=== PATIENT | male | born 2000 | race Caucasian/White ===

== ENCOUNTER 2024-05-07 18:52 | Inpatient (IN) ==
--- NOTE | 2024-05-07 20:02 | Emergency Department Note ---
Impression & Plan Influenza A, AMS (altered mental status), Bilateral pneumonia, Acute hypoxemic respiratory failure, Abdominal pain, Thrombocytopenia, Elevated procalcitonin ED Provider Note HISTORY OF PRESENT ILLNESS: Patient is a 24-year-old male presenting with abdominal pain and vomiting. Patient presents with family who reports that the patient was having fevers, nausea and vomiting and a headache starting 3 days ago. He reports symptoms of gotten progressively worse. He is not complaining of right lower quadrant abdominal pain. Family found the patient this evening to be lethargic and minimally responsive. On EMS arrival, he is found to have a temperature of 103. He was given 4 mg IV Zofran and 1 g of IV Tylenol with a liter of normal saline and route with EMS. Arrival to the ER, the patient is slow to respond but does answer questions. He is currently complaining of pain in his right lower quadrant. Denies any history of abdominal surgeries. ROS: as above PHYSICAL EXAM: Constitutional: Patient appears in no acute distress. Ill appearing HENT: Head: Normocephalic and atraumatic. Eyes: EOMI, PERRL Mouth/Throat: Mucous membranes moist. Neck: Trachea midline. Neck supple. Cardiovascular: RRR, No murmurs, rubs or gallops. Intact distal pulses. Pulmonary/Chest: No respiratory distress. Breath sounds clear and equal bilaterally. On 3 L nasal cannula. Coarse breath sounds in bilateral lower lung dominguez. Abdominal: Abdomen soft, no rebound or guarding. RLQ TTP Musculoskeletal: No edema, tenderness or deformity noted. Skin: Warm and dry. No rash, erythema, pallor or cyanosis Psychiatric: Appropriate mood and affect for situation. Neurological: Alert and keenly responsive. CN II-XII grossly intact, moving all extremities equally and fully. MDM: - Vitals signs showed hypertension, fever and hypoxia. Patient placed on supplemental oxygen - History obtained via patient and patient's family. History as above. - Chronic conditions affecting care: None - Differential diagnoses include, but are not limited to: Pneumonia; viral syndrome; UTI; appendicitis; small bowel obstruction; pulmonary embolism - Order placed for continuous cardiac monitoring. At this time, monitor showed rate of 63 bpm with normal sinus rhythm, per my interpretation. - External medical records reviewed. - EKG interpreted by myself showed normal sinus rhythm. Rate 71 bpm. QT 380. No acute ischemic changes. - Laboratory workup interpreted by myself showed leukopenia (WBC 2.88); thrombocytopenia (plt 113); normal PT; hyponatremia (Na 132); normal lactate; normal troponin; elevated procalcitonin (2.34) - Blood cultures obtained - Patient given IV Zosyn for empiric antibiotic coverage given his right lower quadrant abdominal pain concern for potential appendicitis. - UA negative for infection. Noted to have trace blood and ketones. - Viral respiratory panel positive for influenza A - CXR shows what appears to be a left-sided pneumonia, per my interpretation. - CT abdomen/pelvis with IV contrast noted to have bilateral lower lobe pneumonia with the left greater than the right. Appendix not visualized but no secondary findings of appendicitis. - Patient given 1L NS with EMS prehospital and an additional 1.5L NS in ER. Patient sepsis volume fluid calculation based on ideal body weight is 2427.00 mL - Discussion was had with nurse outreach case manager about patient's case and need for admission - Hospitalist, Dr. Tomlin, consulted for admission. She requested that Rocephin and azithromycin be ordered for further antibiotic management. These medications were ordered. ,- Patient admitted to [facility] for further evaluation and management. I have personally spent 48 minutes of critical care time in the direct management of this patient. This includes bedside care, interpretation of diagnostic studies, and testing, discussion with consultants, patient, and family members, and other required patient management activities. This 48 minutes is in excess of all separately billable procedures. ASSESSMENT AND PLAN: Diagnosis: Influenza A; altered mental status; bilateral pneumonia; acute hypoxemic respiratory failure; abdominal pain; thrombocytopenia; elevated procalcitonin Plan: admit Past Med/Surg History Problem List (Updated 05/07/24 @ 22:48 by Danelle Hagen MD) Elevated procalcitonin (Acute) Thrombocytopenia (Acute) Abdominal pain (Acute) Acute hypoxemic respiratory failure (Acute) Bilateral pneumonia (Acute) AMS (altered mental status) (Acute) Influenza A (Acute) Social History Smoking Status: Never smoker Feels Safe at Home: Yes Allergies Allergies Allergy/AdvReac Type Severity Reaction Status Date / Time No Known Allergies Allergy Verified 05/07/24 21:34 Home Meds Home Medications Medication Instructions Recorded Confirmed No Known Home Medications 05/07/24 05/07/24 Results & Data (ED) Vital Signs Vital Signs - 24 hr 05/07/24 18:59 05/07/24 19:02 05/07/24 19:57 Temperature 37.7 C H Temperature Source Oral Pulse Rate 78 69 Pulse Rate [Apical] Pulse Rhythm [Apical] Pulse Strength [Apical] Respiratory Rate 18 Respiratory Effort / Characteristics Non-Labored Respiratory Depth Normal Respiratory Pattern Blood Pressure 147/77 H Blood Pressure [Right Arm] Blood Pressure Mean 100 Blood Pressure Mean [Right Arm] Pulse Oximetry 88 L 88 L Oxygen Delivery Method Room Air Room Air Oxygen Flow Rate Sepsis Recent Fever Within 48 Hours Yes Sepsis New/Unexplained Change in Mental Status No Sepsis Action Taken by Nursing No Action Required Oxygen Flow Rate - Titration 2 Pulse Oximetry Post Tiitration 93 05/07/24 19:57 05/07/24 20:00 05/07/24 21:00 Temperature Temperature Source Pulse Rate Pulse Rate [Apical] 68 61 Pulse Rhythm [Apical] Regular Pulse Strength [Apical] Normal Respiratory Rate 18 16 Respiratory Effort / Characteristics Non-Labored Non-Labored Respiratory Depth Normal Normal Respiratory Pattern Regular Blood Pressure Blood Pressure [Right Arm] 126/72 134/71 Blood Pressure Mean Blood Pressure Mean [Right Arm] 90 92 Pulse Oximetry 93 92 Oxygen Delivery Method Nasal Cannula Nasal Cannula Nasal Cannula Oxygen Flow Rate 2 2 Sepsis Recent Fever Within 48 Hours Sepsis New/Unexplained Change in Mental Status Sepsis Action Taken by Nursing Oxygen Flow Rate - Titration Pulse Oximetry Post Tiitration Laboratory Data 05/07/24 19:50 05/07/24 19:50 Lab Results 05/07/24 05/07/24 Range/Units 19:50 19:55 WBC 2.88 L (4.8-10.8) K/ul RBC 5.05 (4.70-6.10) M/uL Hgb 15.1 (14.0-18.0) g/dl Hct 42.1 (42.0-52.0) % MCV 83.4 (80.0-100.0) fL MCH 29.9 (25.0-34.0) pg MCHC 35.9 (32.0-36.0) g/dL RDW Std Deviation 37.3 (36.4-46.3) fL RDW Coeff of [place] 12.2 (11.5-14.5) % Plt Count 113 L (130-400) K/uL MPV 9.5 (9.4-12.4) fL Immature Gran % (Auto) 0.3 % Neut % (Auto) 74.1 % Lymph % (Auto) 21.5 % [place] % (Auto) 3.8 % Eos % (Auto) 0.0 % Baso % (Auto) 0.3 % Neut # (Auto) 2.13 (1.40-6.50) K/uL Lymph # (Auto) 0.62 L (1.20-3.40) K/uL [place] # (Auto) 0.11 (0.11-0.59) K/uL Eos # (Auto) 0.00 (0.00-0.50) K/uL Baso # (Auto) 0.01 (0.00-0.20) K/uL Immature Gran # (Auto) 0.01 (0.01-0.20) K/uL Toxic Vacuolation 1+ PT 11.9 (9.0-12.0) Seconds INR 1.1 (0.9-1.1) APTT 36 H (21-31) Seconds PTT Ratio 1.3 Sodium 132 L (136-145) mmol/L Potassium 3.7 (3.5-5.1) mmol/L Chloride 100 (98-107) mmol/L Carbon Dioxide 23 (21-32) mmol/L Anion Gap 9 (3-11) BUN 10 (6-23) mg/dl Creatinine 0.88 (0.6-1.4) mg/dl Est Cr Clr Drug Dosing 129.5 ml/min eGFR 121.62 BUN/Creatinine Ratio 11.4 (10-20) Glucose 112 H (70-99(Fasting)) mg/dl Lactate 0.8 (0.4-2.0) mmol/L Calcium 8.3 L (8.6-10.3) mg/dl Magnesium 1.9 (1.7-2.4) mg/dl Total Bilirubin 0.7 (0.2-1.0) mg/dl AST 17 (13-39) U/L ALT 12 (7-52) U/L Alkaline Phosphatase 38 (34-104) U/L Troponin I High Sens 4.7 (0-20) pg/ml Total Protein 6.7 (6.0-8.3) gm/dl Albumin 4.3 (3.4-5.0) gm/dl Globulin 2.4 L (2.5-4.0) gm/dl Albumin/Globulin Ratio 1.8 (0.9-2) Procalcitonin 2.34 H (0-0.5) ng/ml Urine Color Yellow Urine Appearance Clear (Clear) Urine pH 7.0 (4.5-7.5) Ur Specific [place] 1.006 (1.000-1.030) Urine Protein Negative (Negative) Urine Glucose (UA) Negative (Negative) Urine Ketones Trace H (Negative) Urine Blood Trace H (Negative) Urine Nitrite Negative (Negative) Urine Bilirubin Negative (Negative) Urine Urobilinogen Negative (Negative) Ur Leukocyte Esterase Negative (Negative) Urine WBC (Auto) 0-5 (0-5) /hpf Urine RBC (Auto) 0-2 (0-2) /hpf U Hyaline Cast (Auto) 0-2 (0-2) /lpf U Epithel Cells (Auto) 0-2 (0-2) /hpf Urine Bacteria (Auto) None Seen (None Seen) Adenovirus (PCR) Not Detected (NotDetected) B. pertussis DNA (PCR) Not Detected (NotDetected) B.parapertussis DNA PCR Not Detected (NotDetected) C. pneumoniae DNA (PCR) Not Detected (NotDetected) Coronavirus OC43 (PCR) Not Detected (NotDetected) Coronavirus HKU1 (PCR) Not Detected (NotDetected) Coronavirus 229E (PCR) Not Detected (NotDetected) SARS-CoV-2 (PCR) Not Detected (NotDetected) Coronavirus NL63 (PCR) Not Detected (NotDetected) Human Metapneumovir PCR Not Detected (NotDetected) Influenza A (H3) PCR DETECTED A (NotDetected) Influenza Type B (PCR) Not Detected (NotDetected) M. pneumoniae (PCR) Not Detected (NotDetected) Parainfluenza 1 (PCR) Not Detected (NotDetected) Parainfluenza 2 (PCR) Not Detected (NotDetected) Parainfluenza 3 (PCR) Not Detected (NotDetected) Parainfluenza 4 (PCR) Not Detected (NotDetected) RSV (PCR) Not Detected (NotDetected) Entero/Rhino (PCR) Not Detected (NotDetected) Administered Medications Discontinued Medications Acetaminophen (Ofirmev) 1,000 mg in 100 mls @ 400 mls/hr IV NOW STA Stop: 05/07/24 19:57 Last Admin: 05/07/24 20:04 Dose: Not Given Documented By: JOHN Sodium Chloride (Nss) 1,000 mls @ 999 mls/hr IV .Q1H1M ONE Stop: 05/07/24 20:59 Last Infusion: 05/07/24 21:05 Dose: Infused Documented By: Admin: 05/07/24 20:03 Dose: 999 mls/hr Documented By: JOHN Piperacillin Sod/Tazobactam Sod (Zosyn) 4.5 gm in 100 mls @ 200 mls/hr IV NOW ONE; Protocol Stop: 05/07/24 21:21 Last Infusion: 05/07/24 21:40 Dose: Infused Documented By: Admin: 05/07/24 21:07 Dose: 200 mls/hr Documented By: JOHN Ioversol (Optiray 320 100ml) 93 ml IV ONCE ONE Stop: 05/07/24 20:47 Last Admin: 05/07/24 20:46 Dose: 93 ml Documented By: JANY Imaging Data Radiologist's Impression: Chest X-Ray 05/07/24 19:42 Exam(s): XR CXR 1 VIEW EXAM: XR Chest, 1 View CLINICAL HISTORY: Reason for exam: Sepsis. TECHNIQUE: Frontal view of the chest. COMPARISON: No relevant prior studies available. FINDINGS: Lungs: Left lower lobe airspace opacity concerning for pneumonia. Pleural space: Unremarkable. No pleural effusion or pneumothorax. Heart: Unremarkable. No cardiomegaly or pulmonary vascular congestion. Bones/joints: No acute fracture. No dislocation. IMPRESSION: Left lower lobe airspace opacity concerning for pneumonia. Electronically signed by: Deepa Tucker M.D. 05/07/24 22:04 PM Abdomen/Pelvis CT 05/07/24 19:58 Exam(s): CT ABDOMEN + PELVIS With Contrast IV Amt: 93ml EXAM: CT Abdomen and Pelvis With Intravenous Contrast CLINICAL HISTORY: Reason for exam: RLQ abd pain; fever. TECHNIQUE: Axial computed tomography images of the abdomen and pelvis with intravenous contrast. CTDI is 11.27 mGy and DLP is 577.83 mGy-cm. Automated exposure control was utilized for the study. A dose lowering technique was utilized adhering to the principles of ALARA. CONTRAST: Patient received 93ml of IV contrast COMPARISON: No relevant prior studies available. FINDINGS: Lung bases: Bilateral lower lobe pneumonia, left greater than right. ABDOMEN: Liver: Unremarkable. No mass. Gallbladder and bile ducts: Unremarkable. No calcified stones. No ductal dilation. Pancreas: Unremarkable. No mass. No ductal dilation. Spleen: Unremarkable. No splenomegaly. Adrenals: Unremarkable. No mass. Kidneys and ureters: Unremarkable. No solid mass. No hydronephrosis. Stomach and bowel: No bowel obstruction. Bowel fluid levels. No mucosal thickening. PELVIS: Appendix: Appendix not clearly visualized; no secondary signs of appendicitis. Bladder: Unremarkable. No mass. Reproductive: Unremarkable as visualized. ABDOMEN and PELVIS: Intraperitoneal space: Unremarkable. No free air, significant free fluid, or fluid collection. Bones/joints: No acute fracture. No dislocation. Soft tissues: Unremarkable. Vasculature: Unremarkable. No abdominal aortic aneurysm. Lymph nodes: Unremarkable. No enlarged lymph nodes. IMPRESSION: 1. Bilateral lower lobe pneumonia, left greater than right. 2. Bowel fluid levels. Correlate for enteritis. 3. Appendix not clearly visualized; no secondary signs of appendicitis. Electronically signed by: Deepa Tucker M.D. 05/07/24 22:05 PM Discharge Plan Visit Data Chief Complaint: Illness ED Provider: Danelle Hagen Discharge Problem: Influenza A, AMS (altered mental status), Bilateral pneumonia, Acute hypoxemic respiratory failure, Abdominal pain, Thrombocytopenia, Elevated procalcitonin Forms Stand Alone Forms: My [employer] Prescriptions Prescriptions: No Action No Known Home Medications Referrals Referrals: PCP,NO [Primary Care Provider] -
[2024-05-07] MEDS: SODIUM CHLORIDE 0.9% 1,000 ML IV ONE (20:03)
[2024-05-07] MEDS: ACETAMINOPHEN 1,000 MG/100 ML VIAL IV STA (20:04)
[2024-05-07 20:12] LABS: Appearance Urine Clear (Clear); Bacteria Urine Automated None Seen (None Seen); Bilirubin Urine Negative (Negative); Blood Urine Trace (Negative); Cast Urine Automated 0-2 /lpf (0-2); Color Urine Yellow; Epithelial Cell Urine Auto 0-2 /hpf (0-2); Glucose Urine UA Negative (Negative); Ketones Urine Trace (Negative); Leukocyte Esterase Urine Negative (Negative); Nitrite Urine Negative (Negative); Protein Urine Negative (Negative); RBC Urine Automated 0-2 /hpf (0-2); Specific Gravity Urine 1.006 (1.000-1.030); Urobilinogen Urine Negative (Negative); WBC Urine Automated 0-5 /hpf (0-5)
[2024-05-07 20:22] LABS: Hematocrit (blood only) 42.1 % (42.0-52.0); Hemoglobin 15.1 g/dl (14.0-18.0); Mean Corpuscular Hemoglobin 29.9 pg (25.0-34.0); Mean Corpuscular Hgb Conc 35.9 g/dL (32.0-36.0); Mean Corpuscular Volume 83.4 fL (80.0-100.0); Mean Platelet Volume 9.5 fL (9.4-12.4); Platelet Count 113 K/uL (130-400); RDW Coefficient of Variation 12.2 % (11.5-14.5); RDW Standard Deviation 37.3 fL (36.4-46.3); Red Blood Count 5.05 M/uL (4.70-6.10); White Blood Count 2.88 K/ul (4.8-10.8)
[2024-05-07 20:28] LABS: Albumin Globulin Ratio 1.8 (0.9-2); Albumin Level 4.3 gm/dl (3.4-5.0); BUN Creatinine Ratio 11.4 (10-20); Bilirubin,Total 0.7 mg/dl (0.2-1.0); Calcium 8.3 mg/dl (8.6-10.3); Creatinine Clr Calc Pharmacy 129.5 ml/min; Globulin 2.4 gm/dl (2.5-4.0); Magnesium 1.9 mg/dl (1.7-2.4); Potassium 3.7 mmol/L (3.5-5.1); Total Protein 6.7 gm/dl (6.0-8.3)
[2024-05-07 20:34] LABS: Troponin I High Sensitivity 4.7 pg/ml (0-20)
[2024-05-07 20:37] LABS: INR 1.1 (0.9-1.1); Partial Thromboplastin Ratio 1.3; Partial Thromboplastin Time 36 Seconds (21-31); Prothrombin Time 11.9 Seconds (9.0-12.0)
[2024-05-07 20:40] LABS: Basophils # (auto) 0.01 K/uL (0.00-0.20); Basophils % (auto) 0.3 %; Immature Granulocytes # (auto) 0.01 K/uL (0.01-0.20); Immature Granulocytes % (auto) 0.3 %; Lymphocytes # (auto) 0.62 K/uL (1.20-3.40); Lymphocytes % (auto) 21.5 %; Monocytes # (auto) 0.11 K/uL (0.11-0.59); Monocytes % (auto) 3.8 %; Neutrophils # (auto) 2.13 K/uL (1.40-6.50); Neutrophils % (auto) 74.1 %; Toxic Vacuolation 1+
[2024-05-07] MEDS: OPTIRAY 320 100ml IV ONE (20:46)
[2024-05-07 20:55] LABS: Adenovirus PCR Not Detected (NotDetected); Bordetella parapertussis PCR Not Detected (NotDetected); Bordetella pertussis PCR Not Detected (NotDetected); Chlamydia pneumoniae PCR Not Detected (NotDetected); Coronavirus 229E PCR Not Detected (NotDetected); Coronavirus CoV-2 (COVID19)PCR Not Detected (NotDetected); Coronavirus HKU1 PCR Not Detected (NotDetected); Coronavirus NL63 PCR Not Detected (NotDetected); Coronavirus OC43PCR Not Detected (NotDetected); Human Metapneumovirus PCR Not Detected (NotDetected); Influenza A (H3) PCR DETECTED (NotDetected); Influenza B PCR Not Detected (NotDetected); Mycoplasma pneumoniae PCR Not Detected (NotDetected); Parainfluenza Virus 1 PCR Not Detected (NotDetected); Parainfluenza Virus 2 PCR Not Detected (NotDetected); Parainfluenza Virus 3 PCR Not Detected (NotDetected); Parainfluenza Virus 4 PCR Not Detected (NotDetected); Respiratory Syncytial VirusPCR Not Detected (NotDetected); Rhinovirus/Enterovirus PCR Not Detected (NotDetected)
[2024-05-07] MEDS: PIPERACILLIN/TAZOBACTAM 4.5 GM/100 ML BAG IV ONE (21:07)
--- NOTE | 2024-05-07 22:05 | XRay Report ---
Exam(s): XR CXR 1 VIEW EXAM: XR Chest, 1 View CLINICAL HISTORY: Reason for exam: Sepsis. TECHNIQUE: Frontal view of the chest. COMPARISON: No relevant prior studies available. FINDINGS: Lungs: Left lower lobe airspace opacity concerning for pneumonia. Pleural space: Unremarkable. No pleural effusion or pneumothorax. Heart: Unremarkable. No cardiomegaly or pulmonary vascular congestion. Bones/joints: No acute fracture. No dislocation. IMPRESSION: Left lower lobe airspace opacity concerning for pneumonia. Electronically signed by: Deepa Tucker M.D. 05/07/24 22:04 PM
--- NOTE | 2024-05-07 22:06 | CT Scan Report ---
Exam(s): CT ABDOMEN + PELVIS With Contrast IV Amt: 93ml EXAM: CT Abdomen and Pelvis With Intravenous Contrast CLINICAL HISTORY: Reason for exam: RLQ abd pain; fever. TECHNIQUE: Axial computed tomography images of the abdomen and pelvis with intravenous contrast. CTDI is 11.27 mGy and DLP is 577.83 mGy-cm. Automated exposure control was utilized for the study. A dose lowering technique was utilized adhering to the principles of ALARA. CONTRAST: Patient received 93ml of IV contrast COMPARISON: No relevant prior studies available. FINDINGS: Lung bases: Bilateral lower lobe pneumonia, left greater than right. ABDOMEN: Liver: Unremarkable. No mass. Gallbladder and bile ducts: Unremarkable. No calcified stones. No ductal dilation. Pancreas: Unremarkable. No mass. No ductal dilation. Spleen: Unremarkable. No splenomegaly. Adrenals: Unremarkable. No mass. Kidneys and ureters: Unremarkable. No solid mass. No hydronephrosis. Stomach and bowel: No bowel obstruction. Bowel fluid levels. No mucosal thickening. PELVIS: Appendix: Appendix not clearly visualized; no secondary signs of appendicitis. Bladder: Unremarkable. No mass. Reproductive: Unremarkable as visualized. ABDOMEN and PELVIS: Intraperitoneal space: Unremarkable. No free air, significant free fluid, or fluid collection. Bones/joints: No acute fracture. No dislocation. Soft tissues: Unremarkable. Vasculature: Unremarkable. No abdominal aortic aneurysm. Lymph nodes: Unremarkable. No enlarged lymph nodes. IMPRESSION: 1. Bilateral lower lobe pneumonia, left greater than right. 2. Bowel fluid levels. Correlate for enteritis. 3. Appendix not clearly visualized; no secondary signs of appendicitis. Electronically signed by: Deepa Tucker M.D. 05/07/24 22:05 PM
--- NOTE | 2024-05-07 23:10 | History & Physical Report ---
Date of Service May 07, 2024 Assessment & Plan (1) Influenza A: Plan: 24yo male with no significant past medical or surgical history presenting with influenza A with suspected superimposed PNA. Patient has had symptoms ongoing for the last three days. Febrile upon arrival, hypoxic at 88% on room air requiring placement of 2L NC. Patient is out of the window for treatment with Tamiflu -Admit to medical with telemetry -Maintain isolation precautions -IVF with NSS at 125mL/hr x 2L ordered -Tylenol PRN -Zofran PRN (2) Bilateral pneumonia: Plan: CT of the abdomen notes bilateral LL PNA. Patient with elevated Procalcitonin at 2.34. He is leukopenic with WBC=2.88 with lymphopenia and thrombocytopenia. Patient with Sepsis present on admission with fever and leukopenia. -Check sputum culture -Follow blood cultures sent from the ER -Check MRSA nares -Check CT chest -Check CRP -Should have repeat Procalcitonin at day 3 to help guide antibiotic therapy -Will continue antibiotics - Ceftriaxone and Azithromycin, adjust as needed based on results of sputum and cultures -Supplemental O2 -Tylenol PRN (3) Acute hypoxemic respiratory failure: Plan: Saturation 88% on room air on arrival. Secondary to influenza + bacterial PNA. -Incentive spirometry -Supplemental O2 -Treatment of PNA as above (4) Thrombocytopenia: Plan: Leukopenia/Lymphopenia/Thrombocytopenia, with hyponatremia. PTT is mildly elevated as well at 36. Likely secondary to influenza infection. -Will check Lyme/Anaplasmosis as well (5) RLQ abdominal pain: Plan: Patient with complaint of RLQ abdominal pain starting today. His abdomen is tender to palpation but without rebound/guarding. CT as above with no secondary signs of acute appendicitis. Suggests possible enteritis? -Monitor -If persistent would consider repeat abdominal imaging and General Surgery consultation -IVF -Bowel regimen as needed with Senna and Miralax Plan F/E/N - NSS at 125mL/hr x 2L ordered, monitor electrolytes and replete as needed, Regular diet as tolerated with Aspiration precautions given patient's somnolence Bladder scan with straight cath as needed Bowel regimen PRN with Senna and Miralax Ppx - Low risk for DVT, recommend initiating chemoprophylaxis if patient has prolonged hospitalization Code - Full Dispo -Admit to medical with telemetry History of Present Illness Chief Complaint: Fever, fatigue Primary Care Provider: NO PCP Pillo Lucas is a 24yo Yazidi male with no significant past medical or surgical history presenting from home with 3 days of fever, headache, cough/congestion, sore throat and nausea. Symptoms have been progressive over the past 3 days. Today patient began complaining of RLQ abdominal pain as well - he reports this pain is severe, stabbing and constant. Today he was found by family to be lethargic. EMS was called. Patient found to be febrile at 103. Patient additionally reports difficulty urinating - states that he needs to strain to urinate. He has not eaten or drank muck over the last several days. He denies chest pain, palpitations. In the ER he has elevated temperature at 37.7 with normal heart rate, hypoxic to 88% on room air. Placed on 2L NC and saturating at 92%. ER Course: Patient received 1L NSS, 1gm Tylenol and 4mg IV Zofran by EMS prior to arrival Zosyn 4.5gm NSS x 1L Allergies Allergy/AdvReac Type Severity Reaction Status Date / Time No Known Allergies Allergy Verified 05/07/24 21:34 Home Medications Medication Instructions Recorded Confirmed Type No Known Home Medications 05/07/24 05/07/24 History Past Med/Surg History Problem List (Updated 05/07/24 @ 23:20 by Sarah Tomlin DO) RLQ abdominal pain Elevated procalcitonin (Acute) Thrombocytopenia (Acute) Abdominal pain (Acute) Acute hypoxemic respiratory failure (Acute) Bilateral pneumonia (Acute) AMS (altered mental status) (Acute) Influenza A (Acute) Medical History (Updated 05/07/24 @ 23:20 by Sarah Tomlin DO) No significant past medical history Surgical History (Updated 05/07/24 @ 23:02 by Sarah Tomlin DO) No significant past surgical history Family History (Updated 05/07/24 @ 23:02 by Sarah Tomlin DO) Other No significant family history Social History Smoking Status: Never smoker Feels Safe at Home: Yes Review of Systems Review of Systems: All systems reviewed & are unremarkable except as noted in HPI & below Physical Exam Physical Exam: General: patient ill in appearance, awake but drowsy, able to answer questions and follow commands Skin: warm, dry, no rashes HEENT: NC/AT, PERRL, EOMI, anicteric sclera, conjunctiva without injection, external ear normal to inspection and nontender, nares patent, dry mucus membranes, dentition intact, no oropharyngeal lesions, some neck tenderness but supple, trachea midline, no LAD, no thyromegaly, no JVD Negative Kernigs and Brudzinskis sign Heart: +S1/S2, regular, no m/r/g Lungs: equal air entry bilaterally, coarse breath sounds in bilateral bases Abd: +BS, soft, ND, diffusely tender with palpation, no masses/organomegaly/ascites Ext: warm, 2+ pulses in UE/LE bilaterally, no clubbing/cyanosis or edema Neuro: nonfocal Results & Data Results & Data Vital Signs (Past 12 Hours) Vital Signs Temp Pulse Pulse Resp BP BP Pulse Ox 05/07/24 21:00 61 16 134/71 92 05/07/24 20:00 68 18 126/72 93 05/07/24 19:57 05/07/24 19:57 88 L 05/07/24 19:02 37.7 C H 69 18 147/77 H 88 L 05/07/24 18:59 78 O2 Del Method O2 Flow Rate 05/07/24 21:00 Nasal Cannula 2 05/07/24 20:00 Nasal Cannula 2 05/07/24 19:57 Nasal Cannula 05/07/24 19:57 Room Air 05/07/24 19:02 Room Air 05/07/24 18:59 Laboratory Results Laboratory Results WBC 2.88 K/ul (4.8-10.8) L 05/07/24 19:50 RBC 5.05 M/uL (4.70-6.10) 05/07/24 19:50 Hgb 15.1 g/dl (14.0-18.0) 05/07/24 19:50 Hct 42.1 % (42.0-52.0) 05/07/24 19:50 MCV 83.4 fL (80.0-100.0) 05/07/24 19:50 MCH 29.9 pg (25.0-34.0) 05/07/24 19:50 MCHC 35.9 g/dL (32.0-36.0) 05/07/24 19:50 RDW Std Deviation 37.3 fL (36.4-46.3) 05/07/24 19:50 RDW Coeff of Navarro 12.2 % (11.5-14.5) 05/07/24 19:50 Plt Count 113 K/uL (130-400) L 05/07/24 19:50 MPV 9.5 fL (9.4-12.4) 05/07/24 19:50 Immature Gran % (Auto) 0.3 % 05/07/24 19:50 Neut % (Auto) 74.1 % 05/07/24 19:50 Lymph % (Auto) 21.5 % 05/07/24 19:50 [place] % (Auto) 3.8 % 05/07/24 19:50 Eos % (Auto) 0.0 % 05/07/24 19:50 Baso % (Auto) 0.3 % 05/07/24 19:50 Neut # (Auto) 2.13 K/uL (1.40-6.50) 05/07/24 19:50 Lymph # (Auto) 0.62 K/uL (1.20-3.40) L 05/07/24 19:50 [place]asper # (Auto) 0.11 K/uL (0.11-0.59) 05/07/24 19:50 Eos # (Auto) 0.00 K/uL (0.00-0.50) 05/07/24 19:50 Baso # (Auto) 0.01 K/uL (0.00-0.20) 05/07/24 19:50 Immature Gran # (Auto) 0.01 K/uL (0.01-0.20) 05/07/24 19:50 Toxic Vacuolation 1+ 05/07/24 19:50 PT 11.9 Seconds (9.0-12.0) 05/07/24 19:50 INR 1.1 (0.9-1.1) 05/07/24 19:50 APTT 36 Seconds (21-31) H 05/07/24 19:50 PTT Ratio 1.3 05/07/24 19:50 Sodium 132 mmol/L (136-145) L 05/07/24 19:50 Potassium 3.7 mmol/L (3.5-5.1) 05/07/24 19:50 Chloride 100 mmol/L (98-107) 05/07/24 19:50 Carbon Dioxide 23 mmol/L (21-32) 05/07/24 19:50 Anion Gap 9 (3-11) 05/07/24 19:50 BUN 10 mg/dl (6-23) 05/07/24 19:50 Creatinine 0.88 mg/dl (0.6-1.4) 05/07/24 19:50 Est Cr Clr Drug Dosing 129.5 ml/min 05/07/24 19:50 eGFR 121.62 05/07/24 19:50 BUN/Creatinine Ratio 11.4 (10-20) 05/07/24 19:50 Glucose 112 mg/dl (70-99(Fasting)) H 05/07/24 19:50 Lactate 0.8 mmol/L (0.4-2.0) 05/07/24 19:50 Calcium 8.3 mg/dl (8.6-10.3) L 05/07/24 19:50 Magnesium 1.9 mg/dl (1.7-2.4) 05/07/24 19:50 Total Bilirubin 0.7 mg/dl (0.2-1.0) 05/07/24 19:50 AST 17 U/L (13-39) 05/07/24 19:50 ALT 12 U/L (7-52) 05/07/24 19:50 Alkaline Phosphatase 38 U/L (34-104) 05/07/24 19:50 Troponin I High Sens 4.7 pg/ml (0-20) 05/07/24 19:50 Total Protein 6.7 gm/dl (6.0-8.3) 05/07/24 19:50 Albumin 4.3 gm/dl (3.4-5.0) 05/07/24 19:50 Globulin 2.4 gm/dl (2.5-4.0) L 05/07/24 19:50 Albumin/Globulin Ratio 1.8 (0.9-2) 05/07/24 19:50 Procalcitonin 2.34 ng/ml (0-0.5) H 05/07/24 19:50 Urine Color Yellow 05/07/24 19:55 Urine Appearance Clear (Clear) 05/07/24 19:55 Urine pH 7.0 (4.5-7.5) 05/07/24 19:55 Ur Specific [place] 1.006 (1.000-1.030) 05/07/24 19:55 Urine Protein Negative (Negative) 05/07/24 19:55 Urine Glucose (UA) Negative (Negative) 05/07/24 19:55 Urine Ketones Trace (Negative) H 05/07/24 19:55 Urine Blood Trace (Negative) H 05/07/24 19:55 Urine Nitrite Negative (Negative) 05/07/24 19:55 Urine Bilirubin Negative (Negative) 05/07/24 19:55 Urine Urobilinogen Negative (Negative) 05/07/24 19:55 Ur Leukocyte Esterase Negative (Negative) 05/07/24 19:55 Urine WBC (Auto) 0-5 /hpf (0-5) 05/07/24 19:55 Urine RBC (Auto) 0-2 /hpf (0-2) 05/07/24 19:55 U Hyaline Cast (Auto) 0-2 /lpf (0-2) 05/07/24 19:55 U Epithel Cells (Auto) 0-2 /hpf (0-2) 05/07/24 19:55 Urine Bacteria (Auto) None Seen (None Seen) 05/07/24 19:55 Adenovirus (PCR) Not Detected (NotDetected) 05/07/24 19:55 B. pertussis DNA (PCR) Not Detected (NotDetected) 05/07/24 19:55 B.parapertussis DNA PCR Not Detected (NotDetected) 05/07/24 19:55 C. pneumoniae DNA (PCR) Not Detected (NotDetected) 05/07/24 19:55 Coronavirus OC43 (PCR) Not Detected (NotDetected) 05/07/24 19:55 Coronavirus HKU1 (PCR) Not Detected (NotDetected) 05/07/24 19:55 Coronavirus 229E (PCR) Not Detected (NotDetected) 05/07/24 19:55 SARS-CoV-2 (PCR) Not Detected (NotDetected) 05/07/24 19:55 Coronavirus NL63 (PCR) Not Detected (NotDetected) 05/07/24 19:55 Human Metapneumovir PCR Not Detected (NotDetected) 05/07/24 19:55 Influenza A (H3) PCR DETECTED (NotDetected) A 05/07/24 19:55 Influenza Type B (PCR) Not Detected (NotDetected) 05/07/24 19:55 M. pneumoniae (PCR) Not Detected (NotDetected) 05/07/24 19:55 Parainfluenza 1 (PCR) Not Detected (NotDetected) 05/07/24 19:55 Parainfluenza 2 (PCR) Not Detected (NotDetected) 05/07/24 19:55 Parainfluenza 3 (PCR) Not Detected (NotDetected) 05/07/24 19:55 Parainfluenza 4 (PCR) Not Detected (NotDetected) 05/07/24 19:55 RSV (PCR) Not Detected (NotDetected) 05/07/24 19:55 Entero/Rhino (PCR) Not Detected (NotDetected) 05/07/24 19:55 Impressions Chest X-Ray 05/07/24 19:42 Exam(s): XR CXR 1 VIEW EXAM: XR Chest, 1 View CLINICAL HISTORY: Reason for exam: Sepsis. TECHNIQUE: Frontal view of the chest. COMPARISON: No relevant prior studies available. FINDINGS: Lungs: Left lower lobe airspace opacity concerning for pneumonia. Pleural space: Unremarkable. No pleural effusion or pneumothorax. Heart: Unremarkable. No cardiomegaly or pulmonary vascular congestion. Bones/joints: No acute fracture. No dislocation. IMPRESSION: Left lower lobe airspace opacity concerning for pneumonia. Electronically signed by: Deepa Tucker M.D. 05/07/24 22:04 PM Abdomen/Pelvis CT 05/07/24 19:58 Exam(s): CT ABDOMEN + PELVIS With Contrast IV Amt: 93ml EXAM: CT Abdomen and Pelvis With Intravenous Contrast CLINICAL HISTORY: Reason for exam: RLQ abd pain; fever. TECHNIQUE: Axial computed tomography images of the abdomen and pelvis with intravenous contrast. CTDI is 11.27 mGy and DLP is 577.83 mGy-cm. Automated exposure control was utilized for the study. A dose lowering technique was utilized adhering to the principles of ALARA. CONTRAST: Patient received 93ml of IV contrast COMPARISON: No relevant prior studies available. FINDINGS: Lung bases: Bilateral lower lobe pneumonia, left greater than right. ABDOMEN: Liver: Unremarkable. No mass. Gallbladder and bile ducts: Unremarkable. No calcified stones. No ductal dilation. Pancreas: Unremarkable. No mass. No ductal dilation. Spleen: Unremarkable. No splenomegaly. Adrenals: Unremarkable. No mass. Kidneys and ureters: Unremarkable. No solid mass. No hydronephrosis. Stomach and bowel: No bowel obstruction. Bowel fluid levels. No mucosal thickening. PELVIS: Appendix: Appendix not clearly visualized; no secondary signs of appendicitis. Bladder: Unremarkable. No mass. Reproductive: Unremarkable as visualized. ABDOMEN and PELVIS: Intraperitoneal space: Unremarkable. No free air, significant free fluid, or fluid collection. Bones/joints: No acute fracture. No dislocation. Soft tissues: Unremarkable. Vasculature: Unremarkable. No abdominal aortic aneurysm. Lymph nodes: Unremarkable. No enlarged lymph nodes. IMPRESSION: 1. Bilateral lower lobe pneumonia, left greater than right. 2. Bowel fluid levels. Correlate for enteritis. 3. Appendix not clearly visualized; no secondary signs of appendicitis. Electronically signed by: Deepa Tucker M.D. 05/07/24 22:05 PM PG Care Time/CCT Total # of Minutes Spent Total Time Spent with Patient: Total time spent is greater than 50% in coordination of care (as documented) at patient's floor/unit and/or counseling patient: Coding Level of Care Code 75134 INT INP/OBS CARE 3/75MIN Diagnoses Influenza A J10.1 Bilateral pneumonia J18.9 Acute hypoxemic respiratory failure J96.01 Thrombocytopenia D69.6 RLQ abdominal pain R10.31
[2024-05-07] MEDS: cefTRIAXone SODIUM 2,000 MG/50 ML BAG IV STA (23:27)
[2024-05-07] MEDS: AZITHROMYCIN 250 MG TAB PO ONE (23:28)
[2024-05-07] MEDS: SODIUM CHLORIDE 0.9% 500 ML IV ONE (23:31)
--- NOTE | 2024-05-07 23:38 | CT Scan Report ---
Exam(s): CT CHEST Without Contrast EXAM: CT Chest Without Intravenous Contrast CLINICAL HISTORY: Reason for exam: pneumonia with influenza. TECHNIQUE: Axial computed tomography images of the chest without intravenous contrast. CTDI is 7.7 mGy and DLP is 256.19 mGy-cm. Automated exposure control was utilized for the study. A dose lowering technique was utilized adhering to the principles of ALARA. COMPARISON: No relevant prior studies available. FINDINGS: Lungs: Moderate left lower lobe and small right lower lobe airspace consolidations compatible with pneumonia. No mass. Pleural space: Unremarkable. No pneumothorax. No significant effusion. Heart: Unremarkable. No cardiomegaly. No significant pericardial effusion. No significant coronary artery calcifications. Bones/joints: Unremarkable. No acute fracture. No dislocation. Soft tissues: Unremarkable. Vasculature: Unremarkable. No thoracic aortic aneurysm. Lymph nodes: Unremarkable. No enlarged lymph nodes. IMPRESSION: Moderate left lower lobe and small right lower lobe airspace consolidations compatible with pneumonia. Electronically signed by: Deepa Tucker M.D. 05/07/24 23:37 PM
[2024-05-08] MEDS ORDERED: POLYETHYLENE (MIRALAX) 17 GM PACK PO PRN (01:03)
[2024-05-08] MEDS ORDERED: SENNA 8.6 MG TAB PO PRN (01:03)
[2024-05-08] MEDS ORDERED: ONDANSETRON INJ 2 MG/ML 2 ML VIAL IV PRN (01:03)
[2024-05-08] MEDS: SODIUM CHLORIDE 0.9% 1,000 ML IV SCH (01:09)
[2024-05-08 01:24] LABS: C Reactive Protein 7.64 mg/dl (0-0.5)
[2024-05-08 05:59] LABS: Hematocrit (blood only) 39.2 % (42.0-52.0); Mean Corpuscular Hemoglobin 29.8 pg (25.0-34.0); Mean Corpuscular Hgb Conc 35.7 g/dL (32.0-36.0); Mean Corpuscular Volume 83.4 fL (80.0-100.0); Mean Platelet Volume 9.6 fL (9.4-12.4); Platelet Count 106 K/uL (130-400); RDW Coefficient of Variation 12.4 % (11.5-14.5); RDW Standard Deviation 38.1 fL (36.4-46.3); White Blood Count 3.65 K/ul (4.8-10.8)
[2024-05-08 06:16] LABS: Albumin Level 3.8 gm/dl (3.4-5.0); BUN Creatinine Ratio 11.4 (10-20); Bilirubin Direct 0.1 mg/dl (0-0.2); Bilirubin,Total 0.6 mg/dl (0.2-1.0); Calcium 8.3 mg/dl (8.6-10.3); Creatinine Clr Calc Pharmacy 112.5 ml/min; Total Protein 6.1 gm/dl (6.0-8.3)
--- NOTE | 2024-05-08 07:45 | Hospitalist Progress Note ---
Date of Service May 08, 2024 Assessment & Plan (1) Influenza A: Plan: 24yo male with no significant past medical or surgical history presenting with influenza A with bilateral pneumonia worse in Left Lower lobe acute hypoxia present on admission requiring supplemental oxygen Patient is out of the window for treatment with Tamiflu as was ill 3 days prior to admission -Maintain isolation precautions Sepsis present on admission with fever and leukopenia, volume resusitated - resolving - sputum culture blood cultures sent from the ER -negative MRSA nares - Ceftriaxone and Azithromycin, adjust as needed based on results of sputum and cultures (2) Thrombocytopenia: Plan: Leukopenia/Lymphopenia/Thrombocytopenia, negative tick panel screen most likely from acute viral illness (3) RLQ abdominal pain: Plan: Patient with complaint of RLQ abdominal pain on presentation . CT with no secondary signs of acute appendicitis. Suggests possible enteritis? -Bowel regimen as needed with Senna and Miralax Plan Ppx - recommend initiating chemoprophylaxis, follow platelet counts Code - Full Admission and Anticipated Discharge Date Admission Date: May 07, 2024 Subjective pt has been titrated off oxygen he is feeling improved, remains significantly fatigued Physical Exam Physical Exam: Pt is fatigued, but awake and alert lungs are diminished at the bases but otherwise clear, good air movement Results & Data Results & Data Vital Signs (Past 12 Hours) Vital Signs Temp Pulse Pulse Pulse Resp BP Pulse Ox 05/08/24 07:20 99.5 F 70 18 115/70 95 05/08/24 02:22 99.1 F 63 18 120/68 94 05/08/24 01:50 05/08/24 01:50 98.6 F 67 16 112/67 93 05/08/24 00:50 68 05/07/24 23:00 98.8 F 64 22 128/71 96 05/07/24 22:54 65 05/07/24 21:00 61 16 134/71 92 05/07/24 20:00 68 18 126/72 93 05/07/24 19:57 05/07/24 19:57 88 L O2 Del Method O2 Flow Rate 05/08/24 07:20 Nasal Cannula 3 05/08/24 02:22 Nasal Cannula 3 05/08/24 01:50 Nasal Cannula 3 05/08/24 01:50 Nasal Cannula 3 05/08/24 00:50 05/07/24 23:00 Nasal Cannula 4 05/07/24 22:54 05/07/24 21:00 Nasal Cannula 2 05/07/24 20:00 Nasal Cannula 2 05/07/24 19:57 Nasal Cannula 05/07/24 19:57 Room Air Laboratory Results review cbc review chemistry PG Care Time/CCT Total # of Minutes Spent Total Time Spent with Patient: Total time spent is greater than 50% in coordination of care (as documented) at patient's floor/unit and/or counseling patient: Coding Level of Care Code 25993 SUB INP/OBS CARE 3/50MIN Diagnoses Influenza A J10.1 Thrombocytopenia D69.6 RLQ abdominal pain R10.31
[2024-05-08] MEDS: ENOXAPARIN INJ 40 MG/0.4 ML SYR SQ SCH (11:09)
--- NOTE | 2024-05-08 11:26 | Electrocardiogram Report ---
Test Reason : Blood Pressure : */* mmHG Vent. Rate : 71 BPM Atrial Rate : 71 BPM P-R Int : 128 ms QRS Dur : 110 ms QT Int : 380 ms P-R-T Axes : 53 51 53 degrees QTcB Int : 412 ms Normal sinus rhythm Normal ECG No previous ECGs available Confirmed by Danie Mcmahan ([id number]) on 05/08/2024 11:26:31 AM Referred By: REFERRED SELF Confirmed By: Danie Mcmahan
--- NOTE | 2024-05-08 13:53 | Hospitalist Progress Note ---
Date of Service May 08, 2024 Assessment & Plan Admission and Anticipated Discharge Date Admission Date: May 07, 2024 Results & Data Results & Data Vital Signs (Past 12 Hours) Vital Signs Temp Pulse Pulse Resp BP Pulse Ox O2 Del Method 05/08/24 11:47 99.7 F H 77 18 116/67 96 Room Air 05/08/24 11:18 95 Room Air 05/08/24 08:15 Room Air 05/08/24 08:00 69 05/08/24 07:20 99.5 F 70 18 115/70 95 Nasal Cannula 05/08/24 02:22 99.1 F 63 18 120/68 94 Nasal Cannula O2 Flow Rate 05/08/24 11:47 05/08/24 11:18 2 05/08/24 08:15 05/08/24 08:00 05/08/24 07:20 3 05/08/24 02:22 3 PG Care Time/CCT Total # of Minutes Spent Total Time Spent with Patient: Total time spent is greater than 50% in coordination of care (as documented) at patient's floor/unit and/or counseling patient: Coding
[2024-05-08] MEDS: ACETAMINOPHEN 325 MG TAB PO PRN (15:53)
[2024-05-08] MEDS: AZITHROMYCIN 250 MG TAB PO SCH (21:30)
[2024-05-08] MEDS: cefTRIAXone SODIUM 2,000 MG/50 ML BAG IV SCH (21:30)
[2024-05-09] MEDS ORDERED: guaiFENesin/DEXTROM SYRUP 200MG/20MG 10ML UDC PO PRN (08:02)
--- NOTE | 2024-05-09 08:54 | Discharge Summary ---
Discharge Summary Date of Service May 09, 2024 Principal Dx & Hospital Course #1 = Principal Diagnosis (1) Influenza A: 24yo male with no significant past medical or surgical history presenting with influenza A with bilateral pneumonia worse in Left Lower lobe acute hypoxia present on admission requiring supplemental oxygen Patient is out of the window for treatment with Tamiflu as was ill 3 days prior to admission -Maintain isolation precautions Sepsis present on admission with fever and leukopenia, volume resuscitated - resolved - sputum culture blood cultures sent from the ER negative -negative MRSA nares - Ceftriaxone and Azithromycin, with discharge on augmentin and azithromycin (2) Thrombocytopenia: Leukopenia/Lymphopenia/Thrombocytopenia, negative tick panel screen most likely from acute viral illness (3) RLQ abdominal pain: Patient with complaint of RLQ abdominal pain on presentation resolved likley from coughing CT with no secondary signs of acute appendicitis. Suggests possible enteritis? Plan Code - Full Admission HPI Per Admitting Provider Pillo Lucas is a 24yo [place] male with no significant past medical or surgical history presenting from home with 3 days of fever, headache, cough/congestion, sore throat and nausea. Symptoms have been progressive over the past 3 days. Today patient began complaining of RLQ abdominal pain as well - he reports this pain is severe, stabbing and constant. Today he was found by family to be lethargic. EMS was called. Patient found to be febrile at 103. Patient additionally reports difficulty urinating - states that he needs to strain to urinate. He has not eaten or drank muck over the last several days. He denies chest pain, palpitations. In the ER he has elevated temperature at 37.7 with normal heart rate, hypoxic to 88% on room air. Placed on 2L NC and saturating at 92%. ER Course: Patient received 1L NSS, 1gm Tylenol and 4mg IV Zofran by EMS prior to arrival Zosyn 4.5gm NSS x 1L Discharge Exam awake alert and appropriate, very little cough lungs are clear except at very base Discharge Plan Discharge Items Patient Disposition: Home - Self-Care Reason For Visit: INFLUENZA, PNEUMONIA Discharge Diagnosis: pneumonia Activity: Per Instructions section Activity Comment: rest and recover through the weekend Non-emergency contact: Primary Care Provider Call non-emergency contact if: your symptoms worsen Follow-up/Referrals: PCP,NO [Primary Care Provider] - Diet: Regular Addtl Attending Provider Instructions: You have been diagnosed with pneumonia and have tested positive for influenza A. We are treating you for a bacterial infection also. although you are feeling better you may still be contagious for up to 10 days from when you first became ill, avoid being around other who are not ill, babies and anyone with a health problem that makes is more difficult to fight infections please finish all of your antibiotics Pending Studies at Discharge: No Stand-Alone Forms: My [facility] [employer], Smoking Cessation Medications and DC Order Prescriptions: New azithromycin 250 mg Tablet 250 mg PO HS Qty: 3 0RF amoxicillin-pot clavulanate 875-125 mg tablet 1 tab PO BID Qty: 10 0RF Adult Robitussin Peak Cold M-S 5-10-100 mg/5 mL liquid 10 ml PO Q4H Qty: 237 0RF Discharge Orders: Discharge Order (Routine); Ordered 05/09/24 Ordered By: Dimitri Bragg Admission Data Admit Date/Time: 05/07/24 22:53 Attending Provider: Dimitri Bragg Admit Provider: Sarah Tomlin Primary Care Provider: PCP,NO Other Providers: Sarah Tomlin Hospital Stay Data Consultations 05/07/24 22:18 ED Decision to Admit Stat Diagnostic Imagining Performed 05/07/24 19:58 CT Abd and Pelvis [CT abd pelvis IV con only] Stat 05/07/24 22:53 CT chest diagnostic wo con Stat Pending Results Patient Have Any Pending Studies at Discharge: No Discharge Instructions Given to Patient (Per Discharging Provider) You have been diagnosed with pneumonia and have tested positive for influenza A. We are treating you for a bacterial infection also. although you are feeling better you may still be contagious for up to 10 days from when you first became ill, avoid being around other who are not ill, babies and anyone with a health problem that makes is more difficult to fight infections please finish all of your antibiotics Total Time Total Time Spent Total Time Spent (In Minutes): greater than 30 minutes were required to discharge Coding Level of Care Code 90690 INP/OBS DISCH >30 MIN Diagnoses Influenza A J10.1 Thrombocytopenia D69.6 RLQ abdominal pain R10.31
--- NOTE | 2024-05-10 09:10 | Coding Query ---
CODING QUERY To promote full compliance with coding requirements relating to patient care, provider participation is requested in all cases of coordinator mining products uncertainty. Please assist us with the question(s) below: Coding Question(s): There is documentation in the record, including the Discharge Summary of, " Sepsis present on admission with fever and leukopenia, volume resusitated - resolving - sputum culture blood cultures sent from the ER -negative MRSA nares - Ceftriaxone and Azithromycin, adjust as needed based on results of sputum and cultures". Please specify below, in your clinical opinion, the most likely cause/source of the Sepsis present on admission: ( xx) Influenza A ( xxx ) Pneumonia, possibly bacterial ( ) Pneumonia, unspecified ( ) Other: Please Specify ( ) Unknown most likely source Physician's Response(s): Thank you Jessika Brown Principal Diagnosis: "that condition established after study, to be chiefly responsible for occasioning the admission of the patient to the hospital for care." Co-Existing Principal Diagnosis: "when two or more diagnoses equally meet the criteria for principal diagnosis as determined by the circumstances of admission, diagnostic work up, and/or therapy provided, and the Alphabetic Index, Tabular List, or another coding guideline does not provide sequencing direction, any one of the diagnoses may be sequenced first." "When the physician has documented what appears to be a current diagnosis in the body of the record, but has not included the diagnosis in the final diagnostic statement, the physician should be asked whether the diagnosis should be added." ([facility] QTR90. p3-4) JOCE
--- NOTE | 2024-05-10 09:13 | Coding Query ---
To promote full compliance with coding requirements relating to patient care, provider participation is requested in all cases of die stamper uncertainty. Please assist us with the question(s) below: Coding Question(s): The diagnosis below was documented in the ER and H&P, then subsequently fell off all further documentation. Please indicate if it is still a possible diagnosis or ruled out. Physician's Response(s): ACUTE HYPOXEMIC RESPIRATORY FAILURE - ( regarding the Acute Respiratory Failure, documented on ER & H&P, then documented as Acute Hypoxia in the remainder of the record) ( ) Diagnosed and POA ( ) Diagnosed and not POA ( ) Ruled out ( xxx ) Other (please specify) i do think he was hypoxic, but I do not think he met criteria for respiratory failure MTDD
[2024-05-10 15:42] LABS: Babesia microti DNA Not Detected (Not Detected)
== END 2024-05-09 10:04 | disposition home or self-care (01) | DRG 871 ==
LOC: ED 18:52 → SUATTDRO 22:53 → 2W 22:53